=== PATIENT | female | born 1950 ===

== ENCOUNTER 2018-08-07 10:37 | Inpatient (IN) | payer OTHER ==
[2018-08-07 11:44] LABS: BASO % 0.4 % (0.0-2.0); HEMOGLOBIN 12.2 g/dL (11.0-16.0); LYMPH # 0.7 K/uL (1.0-4.3); LYMPH % 10.7 % (20.0-40.0); MEAN CELL VOLUME 85.6 fL (81.0-99.0); MEAN CORPUSCULAR HEMOGLOBIN 28.1 pg (27.0-31.0); MEAN CORPUSCULAR HGB CONC 32.8 g/dL (33.0-37.0); MEAN PLATELET VOLUME 9.5 fL (7.2-11.7); MONO # 0.2 K/uL (0.0-0.8); MONO % 2.3 % (0.0-10.0); NEUT # 5.8 K/uL (1.8-7.0); NEUT % 86.6 % (50.0-75.0); RBC 4.33 Mil/uL (3.80-5.20); RED CELL DISTRIBUTION WIDTH 13.4 % (11.5-14.5); WHITE BLOOD COUNT 6.7 K/uL (4.8-10.8)
--- NOTE | 2018-08-07 12:30 | RAD ---
Date of service: 08/07/2018 PROCEDURE: Radiographs of the chest and abdomen (obstructive series) HISTORY: Abdominal pain COMPARISON: No prior. TECHNIQUE: AP radiograph of the chest, with upright and supine radiographs of the abdomen. FINDINGS: CHEST: Lungs: Clear. Cardiovascular: Normal size heart. No pulmonary vascular congestion. No aortic atherosclerotic calcification present Pleura: No pleural fluid. No pneumothorax. Other findings: None. ABDOMEN AND PELVIS: Bowel: Unremarkable bowel gas pattern. No evidence of mechanical obstruction. Free air: None. Bones: Mild multilevel degenerative spondylosis of the thoracic and lumbar spine. There is also mild levoscoliosis centered at the thoracolumbar junction.. Other findings: None. IMPRESSION: No acute cardiopulmonary disease. The height minor mid back on obscured. No evidence of mechanical bowel obstruction.
[2018-08-07 13:01] LABS: ALB/GLOB RATIO 1.5 (1.0-2.1); ALBUMIN 4.8 g/dL (3.5-5.0); ALT/SGPT 64 U/L (9-52); AST/SGOT 51 U/L (14-36); BLOOD UREA NITROGEN 19 mg/dL (7-17); CALCIUM 9.4 mg/dl (8.6-10.4); GFR NON-AFRICAN AMERICAN 55; LIPASE 25 U/L (23-300)
[2018-08-07 13:11] LABS: B-TYPE NATRIURETIC PEPTIDE 321 pg/mL (0-900)
--- NOTE | 2018-08-07 13:57 | C.PDOC ---
History Of Present Illness 68 year old female who stays with her family presents to the emergency department with complaints of multiple episodes of nausea and vomiting last night without any trigger or abdominal pain. Patient denies chest pain, shortness of breath, diarrhea, fever, and chills. Patient states that she had a similar presentation a few years ago where the symptoms persisted for 4 months with no diagnosis. Time Seen by Provider: 08/07/18 11:15 Chief Complaint (Nursing): GI Problem History Per: Patient History/Exam Limitations: no limitations Onset/Duration Of Symptoms: Days (1) Current Symptoms Are (Timing): Still Present Associated Symptoms: Nausea, Vomiting. denies: Fever, Chills, Diarrhea, Chest Pain, Other (shortness of breath) Past Medical History Reviewed: Historical Data, Nursing Documentation, Vital Signs Vital Signs: Last Vital Signs Temp 97.6 F 08/07/18 10:48 Pulse 62 08/07/18 10:48 Resp 20 08/07/18 10:48 BP 177/76 H 08/07/18 10:48 Pulse Ox 99 08/07/18 10:48 - Medical History PMH: HTN Surgical History: No Surg Hx Family History: States: No Known Family Hx - Social History Hx Alcohol Use: No Hx Substance Use: No - Immunization History Hx Tetanus Toxoid Vaccination: No Hx Influenza Vaccination: No Hx Pneumococcal Vaccination: No Review Of Systems Except As Marked, All Systems Reviewed And Found Negative. Gastrointestinal: Positive for: Nausea, Vomiting Physical Exam - Physical Exam Appears: Non-toxic, No Acute Distress Skin: Normal Color, Warm, Dry Head: Atraumatic, Normacephalic Eye(s): bilateral: Normal Inspection, PERRL, EOMI Oral Mucosa: Moist Neck: Normal, Supple Chest: Symmetrical, No Tenderness Cardiovascular: Rhythm Regular, No Murmur Respiratory: Normal Breath Sounds, No Rales, No Rhonchi, No Wheezing Gastrointestinal/Abdominal: Soft, No Tenderness, No Guarding, No Rebound Neurological/Psych: Oriented x3, Normal Speech, Normal Cognition ED Course And Treatment - Laboratory Results Result Diagrams: 08/07/18 11:35 08/07/18 12:37 Lab Results: Troponin I < 0.0120 ng/mL (0.00-0.120) 08/07/18 12:37 NT-Pro-B Natriuret Pep 321 pg/mL (0-900) 08/07/18 12:37 Total Bilirubin 1.9 mg/dL (0.2-1.3) H 08/07/18 12:37 AST 51 U/L (14-36) H 08/07/18 12:37 ALT 64 U/L (9-52) H 08/07/18 12:37 Alkaline Phosphatase 81 U/L (38-126) 08/07/18 12:37 Total Protein 8.0 g/dL (6.3-8.3) 08/07/18 12:37 Albumin 4.8 g/dL (3.5-5.0) 08/07/18 12:37 Globulin 3.2 gm/dL (2.2-3.9) 08/07/18 12:37 Albumin/Globulin Ratio 1.5 (1.0-2.1) 08/07/18 12:37 Lipase 25 U/L (23-300) 08/07/18 12:37 O2 Sat by Pulse Oximetry: 99 (RA) Pulse Ox Interpretation: Normal - Other Rad XR Obstructive Series X-Ray: Viewed By Me, Read By Radiologist Interpretation: IMPRESSION: No acute cardiopulmonary disease. The height minor mid back on obscured. No evidence of mechanical bowel obstruction. Medical Decision Making Medical Decision Making: Plan: EKG Chemistry CBC XR Obstructive Series KCl Pepcid 20mg IVP Zofran 4mg IVP Urinalysis Upon reviewing labs, patient's potassium level is low. Case discussed with hospitalist, who wants to admit the patient to telemetry for hypokalemia and vomiting. Disposition Discussed With Dr.: Nicholas Kirkland Doctor Will See Patient In The: Hospital Counseled Patient/Family Regarding: Studies Performed, Diagnosis - Disposition Disposition: HOSPITALIZED Disposition Time: 13:56 Condition: FAIR - Clinical Impression Clinical Impression: Hypokalemia, Vomiting - Scribe Statement The provider has reviewed the documentation as recorded by the Scribe (Emir Noriegaq vi) Provider Attestation: All medical record entries made by the Scribe were at my direction and personally dictated by me. I have reviewed the chart and agree that the record accurately reflects my personal performance of the history, physical exam, medical decision making, and the department course for this patient. I have also personally directed, reviewed, and agree with the discharge instructions and disposition.
[2018-08-07] MEDS ORDERED: Potassium Chl 40 mEq in D5-1/2 1,000 ML IV SCH (14:00)
--- NOTE | 2018-08-07 14:41 | CP.PCM.HP ---
<Dariana Geiger - Last Filed: 08/07/18 15:17> History of Present Illness - History of Present Illness History of Present Illness: Dariana Geiger PGY1 H&P for Dr. Kirkland Pt is a 68yo F with PMH HTN who presents to ED with nausea and vomiting for 2 days. She reports worsening of the nausea and vomiting last night, when she began vomiting multiple times throughout the night. She describes the vomit as initially white, then green last night. She says she continued to vomit in the ED, but felt better after receiving zofran. She tried eating sea salt at home with no relief. She reports prior history of this in 2016 that lasted 4 months, claiming it was more severe at that time. Pt received EGD at that time which was normal. Pt denies abdominal pain, diarrhea, sick contacts, recent travel, or any outside food. She was able to eat lunch yesterday but has not eaten since. Pt reports last BM was yesterday, which was formed but she had to strain. She denies blood in vomit or stool. Pt denies dizziness, chest pain, shortness of breath, dizziness, dysuria, numbness or tingling. SxH: R shoulder arthroscopy 2013, BTL 1981 SocH: denies tobacco, etoh, or recreational drug use FamH: mom- DM Allergies: NKDA Meds: lisinopril 40mg PO daily, Toprol XL 25mg PO daily, HCTZ 25mg PO daily PMD: Kleyn Present on Admission - Present on Admission Any Indicators Present on Admission: No Review of Systems - Review of Systems Review of Systems: as per HPI Past Patient History - Past Social History Smoking Status: Never Smoked - CARDIAC Hx Hypertension: Yes - GASTROINTESTINAL Hx Ulcer: Yes - PSYCHIATRIC Hx Substance Use: No - SURGICAL HISTORY Hx Orthopedic Surgery: Yes (Right shoulder) Hx Tubal Ligation: Yes - ANESTHESIA Hx Anesthesia: Yes Hx Anesthesia Reactions: No Meds Allergies/Adverse Reactions: Allergies Allergy/AdvReac Type Severity Reaction Status Date / Time No Known Allergies Allergy Verified 08/07/18 10:53 Physical Exam - Constitutional Appears: Well, No Acute Distress - Head Exam Head Exam: ATRAUMATIC, NORMOCEPHALIC - Eye Exam Eye Exam: EOMI, Normal appearance, PERRL Pupil Exam: NORMAL ACCOMODATION - ENT Exam ENT Exam: Mucous Membranes Moist - Neck Exam Neck exam: Positive for: Normal Inspection - Respiratory Exam Respiratory Exam: Clear to Auscultation Bilateral, NORMAL BREATHING PATTERN. absent: Rhonchi, Wheezes - Cardiovascular Exam Cardiovascular Exam: Bradycardia, +S1, +S2. absent: Gallop, Rubs, Systolic Murmur - GI/Abdominal Exam GI & Abdominal Exam: Hypoactive Bowel Sounds, Soft. absent: Distended, Firm, Tenderness - Extremities Exam Extremities exam: Positive for: normal inspection. Negative for: pedal edema, tenderness - Neurological Exam Neurological exam: Alert, CN II-XII Intact, Oriented x3 - Psychiatric Exam Psychiatric exam: Normal Affect, Normal Mood - Skin Skin Exam: Dry Results - Vital Signs Recent Vital Signs: Last Vital Signs Temp 97.6 F 08/07/18 10:48 Pulse 59 L 08/07/18 14:26 Resp 16 08/07/18 14:26 BP 179/84 H 08/07/18 14:26 Pulse Ox 99 08/07/18 14:35 - Labs Result Diagrams: 08/07/18 11:35 08/07/18 12:37 Labs: Laboratory Results - last 24 hr 08/07/18 08/07/18 11:35 12:37 WBC 6.7 RBC 4.33 Hgb 12.2 Hct 37.1 MCV 85.6 MCH 28.1 MCHC 32.8 L RDW 13.4 Plt Count 241 MPV 9.5 Neut % (Auto) 86.6 H Lymph % (Auto) 10.7 L Dickens % (Auto) 2.3 Eos % (Auto) 0.0 Baso % (Auto) 0.4 Neut # (Auto) 5.8 Lymph # (Auto) 0.7 L Dickens # (Auto) 0.2 Eos # (Auto) 0.0 Baso # (Auto) 0.0 Sodium 139 Potassium 2.8 L Chloride 96 L Carbon Dioxide 31 H Anion Gap 15 BUN 19 H Creatinine 1.0 Est GFR ( Amer) > 60 Est GFR (Non-Af Amer) 55 Random Glucose 162 H Calcium 9.4 Magnesium 1.7 Total Bilirubin 1.9 H AST 51 H ALT 64 H Alkaline Phosphatase 81 Troponin I < 0.0120 NT-Pro-B Natriuret Pep 321 Total Protein 8.0 Albumin 4.8 Globulin 3.2 Albumin/Globulin Ratio 1.5 Lipase 25 Assessment & Plan - Assessment and Plan (Free Text) Assessment: 68yo F with PMH HTN who presents to ED with nausea and vomiting for 2 days, admitted for hypokalemia. Plan: Hypokalemia - likely secondary to vomiting - K+ 2.8 - Mg 1.7 - EKG: sinus patrick with LVH - given KCl 40meq IV in ED - KCL 40meq in 1/2NS @125cc/hr - f/u BMP - replete Mg if needed Vomiting - reports improvement with zofran - Xray abdomen/pelvis: no obstruction - f/u CT abd/pel PO contrast - f/u serum influenza - Zofran 4mg IV q6h PRN - Reglan 10mg IV q12h PRN - 1/2 NS@125cc/hr - CLD - advance diet as tolerated H/o HTN - EKG: sinus patrick with LVH - hold home meds at this time - vasotec 1.25mg IV daily PPX GI: not indicated at this time DVT: SCDs, lovenox 40 CLD Pt seen and case reviewed with Dr. Kirkland <Nicholas Kirkland - Last Filed: 08/07/18 17:03> Results - Vital Signs Recent Vital Signs: Last Vital Signs Temp 97.6 F 08/07/18 10:48 Pulse 60 08/07/18 16:03 Resp 17 08/07/18 16:03 BP 171/56 H 08/07/18 16:03 Pulse Ox 98 08/07/18 16:03 - Labs Result Diagrams: 08/07/18 11:35 08/07/18 12:37 Labs: Laboratory Results - last 24 hr 08/07/18 08/07/18 11:35 12:37 WBC 6.7 RBC 4.33 Hgb 12.2 Hct 37.1 MCV 85.6 MCH 28.1 MCHC 32.8 L RDW 13.4 Plt Count 241 MPV 9.5 Neut % (Auto) 86.6 H Lymph % (Auto) 10.7 L Dickens % (Auto) 2.3 Eos % (Auto) 0.0 Baso % (Auto) 0.4 Neut # (Auto) 5.8 Lymph # (Auto) 0.7 L Dickens # (Auto) 0.2 Eos # (Auto) 0.0 Baso # (Auto) 0.0 Sodium 139 Potassium 2.8 L Chloride 96 L Carbon Dioxide 31 H Anion Gap 15 BUN 19 H Creatinine 1.0 Est GFR ( Amer) > 60 Est GFR (Non-Af Amer) 55 Random Glucose 162 H Calcium 9.4 Magnesium 1.7 Total Bilirubin 1.9 H AST 51 H ALT 64 H Alkaline Phosphatase 81 Troponin I < 0.0120 NT-Pro-B Natriuret Pep 321 Total Protein 8.0 Albumin 4.8 Globulin 3.2 Albumin/Globulin Ratio 1.5 Lipase 25 Attending/Attestation - Attestation I have personally seen and examined this patient.: Yes I have fully participated in the care of the patient.: Yes I have reviewed all pertinent clinical information: Yes Notes (Text): 08/07/18 16:57 Medical attending: Patient was seen and examined by me. Agree with the above note by the resident The patient was not in any acute distress when we came and saw her. She reported no abdominal pain on exam, however has had ongoing nausea and vomiting that is only relieved with the administration of Zofran. review of her labwork shows there is a low K of 2.8. Will give IVF 1/2 NSS with KCL in it for hydration Also the obstruction series was negative, will try to see if she can tolerate a CT of the abdomen and pelivis with PO contrast. The patient explains that there was similar occurence sometime ago and she was in the hospital for some time however nothing was found despite undergoing numerous studies Nicholas Kirkland
[2018-08-07] MEDS ORDERED: Iohexol 240 (50 ml) PO ONE (15:16)
[2018-08-07] MEDS ORDERED: Iohexol 240 (50 ml) ONE (16:01)
[2018-08-07] MEDS ORDERED: Enalaprilat 2.5 MG/2 ML ONE (16:01)
[2018-08-07] MEDS: Enalaprilat 2.5 MG/2 ML IV SCH (16:03)
--- NOTE | 2018-08-07 18:10 | CT ---
Date of service: 08/07/2018 PROCEDURE: CT Abdomen and Pelvis with contrast HISTORY: Nausea, vomiting and hypokalemia. COMPARISON: None. TECHNIQUE: Oral contrast only. Radiation dose: Total exam DLP = 1063.52 mGy-cm. This CT exam was performed using one or more of the following dose reduction techniques: Automated exposure control, adjustment of the mA and/or kV according to patient size, and/or use of iterative reconstruction technique. FINDINGS: LOWER THORAX: Unremarkable. LIVER: Unremarkable. No gross lesion or ductal dilatation. GALLBLADDER AND BILE DUCTS: Cholelithiasis without CT evidence of acute cholecystitis. PANCREAS: Unremarkable. No gross lesion or ductal dilatation. SPLEEN: Unremarkable. ADRENALS: Unremarkable. No mass. KIDNEYS AND URETERS: Unremarkable. No hydronephrosis. No solid mass. VASCULATURE: Atherosclerotic calcification and mural plaque present. Findings are seen throughout the aorta No aortic aneurysm. BOWEL: Unremarkable. No obstruction. No gross mural thickening. APPENDIX: Normal appendix. PERITONEUM: Unremarkable. No free fluid. No free air. LYMPH NODES: Unremarkable. No enlarged lymph nodes. BLADDER: Unremarkable. REPRODUCTIVE: Unremarkable. BONES: No acute fracture. OTHER FINDINGS: None. IMPRESSION: Cholelithiasis without CT evidence of acute cholecystitis. No evidence of mechanical bowel obstruction, mass or intraperitoneal free air. Additional benign and/or incidental findings described above.
[2018-08-07] MEDS: Potassium Chloride 40 MEQ in Sodium Chloride 0.45% 1,000 ML IV SCH (19:00)
[2018-08-08] MEDS: Potassium Chloride 40 MEQ in Sodium Chloride 0.45% 1,000 ML IV SCH ×2 (02:31→02:43)
[2018-08-08] MEDS: MAGNESIUM SULFATE IV SCH ×3 (05:38→22:40)
[2018-08-08] MEDS: SODIUM CHLORIDE 0.45% IV SCH ×3 (05:38→22:40)
[2018-08-08] MEDS: POTASSIUM CHLORIDE IV SCH ×3 (05:38→22:40)
[2018-08-08 06:51] LABS: BASO % 0.4 % (0.0-2.0); EOS % 0.1 % (0.0-4.0); HEMOGLOBIN 11.2 g/dL (11.0-16.0); LYMPH # 1.6 K/uL (1.0-4.3); LYMPH % 19.5 % (20.0-40.0); MEAN CELL VOLUME 84.8 fL (81.0-99.0); MEAN CORPUSCULAR HEMOGLOBIN 28.4 pg (27.0-31.0); MEAN CORPUSCULAR HGB CONC 33.5 g/dL (33.0-37.0); MEAN PLATELET VOLUME 9.7 fL (7.2-11.7); MONO # 0.6 K/uL (0.0-0.8); MONO % 7.8 % (0.0-10.0); NEUT # 5.7 K/uL (1.8-7.0); NEUT % 72.2 % (50.0-75.0); RBC 3.96 Mil/uL (3.80-5.20); RED CELL DISTRIBUTION WIDTH 13.5 % (11.5-14.5); WHITE BLOOD COUNT 7.9 K/uL (4.8-10.8)
[2018-08-08 07:30] LABS: ALB/GLOB RATIO 1.4 (1.0-2.1); ALBUMIN 4.1 g/dL (3.5-5.0); ALT/SGPT 56 U/L (9-52); AST/SGOT 48 U/L (14-36); BLOOD UREA NITROGEN 16 mg/dL (7-17); CALCIUM 8.7 mg/dl (8.6-10.4); GFR NON-AFRICAN AMERICAN 55
--- NOTE | 2018-08-08 09:11 | CP.PCM.PN ---
Subjective - Date & Time of Evaluation Date of Evaluation: 08/08/18 Time of Evaluation: 09:00 - Subjective Subjective: Patient reported she did feel better. There was less nausea and vomiting today. She has been on the Zofran and Reglan and IVF She has been able to hold down a clear liquid diet. She continues to deny having abdominal pain. She has not had a BM. Urination is ok she says Continues to deny fevers, denies chills, denies chest pain, denies shortness of breath CT scan with PO contrast did not show any acute findings She is on IVF with KCL, today the K is better. I explained to her that maybe she will be DC tommorow depending on K level Objective - Vital Signs/Intake and Output Vital Signs (last 24 hours): Temp Pulse Resp BP Pulse Ox 99.1 F 54 L 20 171/74 H 96 08/08/18 08:24 08/08/18 08:24 08/08/18 08:24 08/08/18 08:24 08/08/18 08:24 Intake and Output: 08/08/18 08/08/18 06:59 18:59 Intake Total 550 Balance 550 - Medications Medications: Current Medications Acetaminophen (Tylenol 325mg Tab) 650 mg PO Q6 PRN PRN Reason: Pain, moderate (4-7) Enalaprilat (Vasotec) 1.25 mg IV DAILY [facility] Last Admin: 08/07/18 16:03 Dose: 1.25 mg Enoxaparin Sodium (Lovenox) 40 mg SC DAILY [facility] Potassium Chloride 40 meq/Magnesium Sulfate 1 gm/ Sodium Chloride 1,022 mls @ 125 mls/hr IV .Q8H11M [facility] Last Admin: 08/08/18 05:38 Dose: 125 mls/hr Metoclopramide HCl (Reglan) 10 mg IVP Q12H PRN PRN Reason: Nausea/Vomiting Ondansetron HCl (Zofran Inj) 4 mg IVP Q6 PRN PRN Reason: Nausea/Vomiting Last Admin: 08/08/18 08:00 Dose: 4 mg - Labs Labs: 08/08/18 06:44 08/08/18 06:44 - Constitutional Appears: Well, No Acute Distress - Head Exam Head Exam: NORMAL INSPECTION, NORMOCEPHALIC - Eye Exam Eye Exam: EOMI, Normal appearance - ENT Exam ENT Exam: Mucous Membranes Moist - Respiratory Exam Respiratory Exam: Clear to Ausculation Bilateral, NORMAL BREATHING PATTERN - GI/Abdominal Exam GI & Abdominal Exam: Soft, Normal Bowel Sounds. absent: Distended, Guarding, Rigid, Tenderness Additional comments: No pain, even with deep palpation - Neurological Exam Neurological Exam: Alert, Awake, Oriented x3 Neuro motor strength exam: Left Upper Extremity: 5, Right Upper Extremity: 5, Left Lower Extremity: 5, Right Lower Extremity: 5 - Psychiatric Exam Psychiatric exam: Normal Affect, Normal Mood - Skin Skin Exam: Normal Color, Warm Assessment and Plan - Assessment and Plan (Free Text) Assessment: 68yo F with PMH HTN who presents to ED with nausea and vomiting for 2 days, admitted for hypokalemia. Plan: Hypokalemia 08/08: K is better. On IVF with KCL will continue this. KCL 40meq in 1/2NS @125cc/hr Vomiting 08/08: Tolerating a clear liquid diet Continue with the IVF Also Zofran and Reglan H/o HTN 08/08: Today less nausea and vommitting Resume BB PPX GI: not indicated at this time DVT: SCDs, lovenox 40 CLD
[2018-08-08] MEDS: Enalaprilat 2.5 MG/2 ML IV SCH (09:43)
[2018-08-08] MEDS: Enoxaparin 40 mg Syringe SC SCH (09:43)
[2018-08-08] MEDS ORDERED: Metoprolol Succinate 25 mg XL Tab PO SCH (10:00)
[2018-08-08 15:15] LABS: SQUAMOUS EPITHIAL 1 /hpf (0-5); URINE BACTERIA OCC (<OCC); URINE BILIRUBIN NEGATIVE (NEGATIVE); URINE BLOOD NEGATIVE (NEGATIVE); URINE CLARITY Clear (Clear); URINE COLOR Yellow (YELLOW); URINE GLUCOSE (UA) NORMAL (Normal); URINE LEUKOCYTE ESTERASE 3+ Leu/uL (Negative); URINE PROTEIN NEGATIVE (NEGATIVE)
[2018-08-09] MEDS: MAGNESIUM SULFATE IV SCH ×5 (00:57→22:52)
[2018-08-09] MEDS: POTASSIUM CHLORIDE IV SCH ×5 (00:57→22:52)
[2018-08-09] MEDS: SODIUM CHLORIDE 0.45% IV SCH ×5 (00:57→22:52)
[2018-08-09] MEDS ORDERED: Bisacodyl 5mg EC Tab PO ONE (01:14)
[2018-08-09 07:13] LABS: BASO # 0.1 K/uL (0.0-0.2); BASO % 0.8 % (0.0-2.0); EOS % 0.2 % (0.0-4.0); HEMOGLOBIN 11.4 g/dL (11.0-16.0); LYMPH # 1.6 K/uL (1.0-4.3); LYMPH % 22.3 % (20.0-40.0); MEAN CELL VOLUME 85.2 fL (81.0-99.0); MEAN CORPUSCULAR HEMOGLOBIN 28.5 pg (27.0-31.0); MEAN CORPUSCULAR HGB CONC 33.4 g/dL (33.0-37.0); MONO # 0.6 K/uL (0.0-0.8); MONO % 7.9 % (0.0-10.0); NEUT # 4.9 K/uL (1.8-7.0); NEUT % 68.8 % (50.0-75.0); NRBC % 0.1 % (0.0-2.0); RED CELL DISTRIBUTION WIDTH 13.3 % (11.5-14.5); WHITE BLOOD COUNT 7.1 K/uL (4.8-10.8)
[2018-08-09 07:44] LABS: ALB/GLOB RATIO 1.5 (1.0-2.1); ALT/SGPT 76 U/L (9-52); AST/SGOT 73 U/L (14-36); BLOOD UREA NITROGEN 12 mg/dL (7-17); CALCIUM 8.4 mg/dl (8.6-10.4); GFR NON-AFRICAN AMERICAN > 60
[2018-08-09] MEDS: Enalaprilat 2.5 MG/2 ML IV SCH (09:12)
[2018-08-09] MEDS: Enoxaparin 40 mg Syringe SC SCH (09:13)
--- NOTE | 2018-08-09 09:21 | CP.PCM.PN ---
Subjective - Date & Time of Evaluation Date of Evaluation: 08/09/18 Time of Evaluation: 09:00 - Subjective Subjective: Patient reported feeling very anxious and stressed out last night. She still has the nausea and vomiting. She says the Zofran and Reglan do help - but when they wear off the nausea and vomiting return. Today the K is better 3.4 now with the IVF with KCL. Will check a urine culture as well She continues to deny abdominal pain and denies chest pain, denies headache, denies fever BP was somewhat elevated - in the 160s and 170s systolic. Will add on norvasc, continue enalapril. Objective - Vital Signs/Intake and Output Vital Signs (last 24 hours): Temp Pulse Resp BP Pulse Ox 98.6 F 75 20 189/80 H 99 08/09/18 07:00 08/09/18 08:00 08/09/18 07:00 08/09/18 09:12 08/09/18 07:00 Intake and Output: 08/09/18 08/09/18 06:59 18:59 Intake Total 900 Output Total 100 Balance 800 - Medications Medications: Current Medications Acetaminophen (Tylenol 325mg Tab) 650 mg PO Q6 PRN PRN Reason: Pain, moderate (4-7) Amlodipine Besylate (Norvasc) 10 mg PO DAILY [facility] Last Admin: 08/09/18 09:12 Dose: 10 mg Enalaprilat (Vasotec) 1.25 mg IV DAILY [facility] Last Admin: 08/09/18 09:12 Dose: 1.25 mg Enoxaparin Sodium (Lovenox) 40 mg SC DAILY [facility] Last Admin: 08/09/18 09:13 Dose: 40 mg Potassium Chloride 40 meq/Magnesium Sulfate 1 gm/ Sodium Chloride 1,022 mls @ 125 mls/hr IV .Q8H11M [facility] Last Admin: 08/09/18 09:12 Dose: 125 mls/hr Metoclopramide HCl (Reglan) 10 mg IVP Q12H PRN PRN Reason: Nausea/Vomiting Last Admin: 08/08/18 09:42 Dose: 10 mg Metoprolol Tartrate (Lopressor) 25 mg PO BID [facility] Last Admin: 08/08/18 18:16 Dose: Not Given Ondansetron HCl (Zofran Inj) 4 mg IVP Q6 PRN PRN Reason: Nausea/Vomiting Last Admin: 08/09/18 04:31 Dose: 4 mg - Labs Labs: 08/09/18 07:02 08/09/18 07:02 - Constitutional Appears: Unkempt - Head Exam Head Exam: NORMAL INSPECTION, NORMOCEPHALIC - Eye Exam Eye Exam: EOMI, Normal appearance - ENT Exam ENT Exam: Mucous Membranes Moist - Respiratory Exam Respiratory Exam: Clear to Ausculation Bilateral, NORMAL BREATHING PATTERN - Cardiovascular Exam Cardiovascular Exam: REGULAR RHYTHM - GI/Abdominal Exam GI & Abdominal Exam: Soft, Normal Bowel Sounds. absent: Bruit, Distended, Firm, Guarding, Rigid, Tenderness Additional comments: No pain even with deep palpation - Neurological Exam Neurological Exam: Alert, Awake, Oriented x3 Neuro motor strength exam: Left Upper Extremity: 5, Right Upper Extremity: 5, Left Lower Extremity: 5, Right Lower Extremity: 5 - Psychiatric Exam Psychiatric exam: Depressed, Flat Affect - Skin Skin Exam: Normal Color, Warm Assessment and Plan - Assessment and Plan (Free Text) Assessment: 68yo F with PMH HTN who presents to ED with nausea and vomiting for 2 days, admitted for hypokalemia, stress, anxiety Plan: Hypokalemia 08/09: Again improved. Because of the ongoing nausea and vommitting will continue with the IVF as she has poor PO tolerance. The CT scan of the abdomen and pelvis with PO contrast was negative for acute dings. 08/08: K is better. On IVF with KCL will continue this. KCL 40meq in 1/2NS @125cc/hr Vomiting and Nausea 08/09: Continue with the Reglan and Zofran IV. Today try Thorazine 25 IM x 1 and see if this helps any. Should she continue to have this nausea and vommitting consider GI consult to see if she may need an EGD As mentioned previously the CT with PO contrast was negative for acute findings 08/08: Tolerating a clear liquid diet Continue with the IVF Also Zofran and Reglan H/O HTN 08/09: 08/08: Today less nausea and vommitting PPX GI: not indicated at this time DVT: SCDs, lovenox 40 CLD
[2018-08-10 01:23] VITALS: RESP 20
[2018-08-10] MEDS: POTASSIUM CHLORIDE IV SCH (03:42)
[2018-08-10] MEDS: MAGNESIUM SULFATE IV SCH (03:42)
[2018-08-10] MEDS: SODIUM CHLORIDE 0.45% IV SCH (03:42)
[2018-08-10 07:05] LABS: ALB/GLOB RATIO 1.4 (1.0-2.1); ALBUMIN 3.9 g/dL (3.5-5.0); ALT/SGPT 86 U/L (9-52); AST/SGOT 61 U/L (14-36); BLOOD UREA NITROGEN 8 mg/dL (7-17); CALCIUM 8.3 mg/dl (8.6-10.4); GFR NON-AFRICAN AMERICAN > 60
[2018-08-10 07:08] LABS: BASO % 0.5 % (0.0-2.0); EOS % 0.5 % (0.0-4.0); HEMOGLOBIN 11.6 g/dL (11.0-16.0); LYMPH # 1.3 K/uL (1.0-4.3); LYMPH % 17.8 % (20.0-40.0); MEAN CELL VOLUME 84.7 fL (81.0-99.0); MEAN CORPUSCULAR HEMOGLOBIN 28.5 pg (27.0-31.0); MEAN CORPUSCULAR HGB CONC 33.6 g/dL (33.0-37.0); MEAN PLATELET VOLUME 9.8 fL (7.2-11.7); MONO # 0.5 K/uL (0.0-0.8); MONO % 6.6 % (0.0-10.0); NEUT # 5.6 K/uL (1.8-7.0); NEUT % 74.6 % (50.0-75.0); RBC 4.07 Mil/uL (3.80-5.20); RED CELL DISTRIBUTION WIDTH 13.4 % (11.5-14.5); WHITE BLOOD COUNT 7.5 K/uL (4.8-10.8)
--- NOTE | 2018-08-10 07:38 | CP.PCM.PN ---
Subjective - Date & Time of Evaluation Date of Evaluation: 08/10/18 Time of Evaluation: 07:37 - Subjective Subjective: PGY-1 Louann Cheung D.O. Medicine progress note for Dr. Kwok's service: Patient was seen and examined this morning. She states that she is feeling much better. She continues to have a "burning" sensation in her chest/throat. She has some post-tussive vomiting yesterday, but she reports that it was a low volume of emesis. She is tolerating clear liquids. She states she eats regular food at home but is not comfortable advancing her diet that quickly. She is agreeable to trying full liquids. She is sleeping well. Denies abdominal pain. She had a BM yesterday. She says she is urinating frequently due to her IVF. Objective - Vital Signs/Intake and Output Vital Signs (last 24 hours): Temp Pulse Resp BP Pulse Ox 99.0 F 86 20 160/89 H 96 08/10/18 07:00 08/10/18 07:00 08/10/18 07:00 08/10/18 07:00 08/10/18 07:00 Intake and Output: 08/10/18 08/10/18 06:59 18:59 Intake Total 1999 Balance 1999 - Medications Medications: Current Medications Acetaminophen (Tylenol 325mg Tab) 650 mg PO Q6 PRN PRN Reason: Pain, moderate (4-7) Amlodipine Besylate (Norvasc) 10 mg PO DAILY [facility] Last Admin: 08/09/18 09:12 Dose: 10 mg Enalaprilat (Vasotec) 1.25 mg IV DAILY [facility] Last Admin: 08/09/18 09:12 Dose: 1.25 mg Enoxaparin Sodium (Lovenox) 40 mg SC DAILY [facility] Last Admin: 08/09/18 09:13 Dose: 40 mg Potassium Chloride 40 meq/Magnesium Sulfate 1 gm/ Sodium Chloride 1,022 mls @ 125 mls/hr IV .Q8H11M [facility] Last Admin: 08/10/18 03:42 Dose: 125 mls/hr Metoclopramide HCl (Reglan) 10 mg IVP Q12H PRN PRN Reason: Nausea/Vomiting Last Admin: 08/10/18 00:57 Dose: 10 mg Metoprolol Tartrate (Lopressor) 25 mg PO BID [facility] Last Admin: 08/08/18 18:16 Dose: Not Given Ondansetron HCl (Zofran Inj) 4 mg IVP Q6 PRN PRN Reason: Nausea/Vomiting Last Admin: 08/09/18 04:31 Dose: 4 mg - Labs Labs: 08/10/18 06:43 08/10/18 06:43 - Constitutional Appears: Non-toxic, No Acute Distress - Head Exam Head Exam: ATRAUMATIC, NORMAL INSPECTION - Eye Exam Eye Exam: EOMI, Normal appearance - ENT Exam ENT Exam: Mucous Membranes Moist - Neck Exam Neck Exam: Normal Inspection - Respiratory Exam Respiratory Exam: Clear to Ausculation Bilateral, NORMAL BREATHING PATTERN. absent: Accessory Muscle Use, Respiratory Distress - Cardiovascular Exam Cardiovascular Exam: REGULAR RHYTHM, +S1, +S2 - GI/Abdominal Exam GI & Abdominal Exam: Soft. absent: Distended, Tenderness, Rebound - Extremities Exam Extremities Exam: Normal Inspection - Neurological Exam Neurological Exam: Alert, Awake, CN II-XII Intact, Oriented x3 - Psychiatric Exam Psychiatric exam: Normal Affect, Normal Mood - Skin Skin Exam: Dry, Normal Color, Warm Assessment and Plan - Assessment and Plan (Free Text) Assessment: Patient is a 68 yo female with a history of HTN who presented with nausea and vomiting. GI work-up has been negative thus far. Patient's family believes this may be psych-related as the patient has had previous hospitalizations for the same symptoms without an organic etiology found. Patient reports anxiety. Lexapro started for depression and anxiety. Nausea and vomiting have improved and patient is tolerating PO diet. GNR in urine Cx; patient asymptomatic. Plan: Nausea and vomiting, improved - Patient reports previous work-up, including EGD, without significant results - Afebrile, no leukocytosis - Rapid flu negative - AXR: no obstruction - CT A/P: Cholelithiasis without CT evidence of acute cholecystitis. No evidence of mechanical bowel obstruction, mass or intraperitoneal free air. - Replete electrolytes PRN- hypokalemia resolved - Reglan 10 mg IV Q12H PRN - Zofran 4 mg IV Q6H PRN - Discontinue IVF- patient tolerating PO diet, ADAT - Consider GI consult if worsens Gastroesophageal reflux disease - Elevate head of bed - Avoid lying down after eating - Protonix 40 mg PO daily for at least 4 weeks, then consider EGD as outpatient if no improvement Transaminitis, mild, stable - Hepatitis panel pending - Trend LFTs Asymptomatic bacteriuria - UA: LE 3+, nitrate neg, WBC 70, tex occ - UCx: GNR - Follow-up final Cx and sensitivities - Cipro 500 mg PO Q12H- started 08/10 Hypertension - Vitals Q6H - Norvasc 10 mg PO daily - Enalapril 2.5 mg PO daily - Metoprolol 50 mg PO daily Ppx: VTE: SCDs, LVX 40 units SC daily GI: PTX 40 mg PO daily Code status: full code Case was discussed with attending, Dr. Kwok.
[2018-08-10] MEDS ORDERED: Vitamins A & D Oint UD Foilpak TOP PRN (08:22)
[2018-08-10] MEDS: Enalaprilat 2.5 MG/2 ML IV SCH (09:54)
[2018-08-10] MEDS: Enoxaparin 40 mg Syringe SC SCH (09:56)
--- NOTE | 2018-08-10 12:06 | PCM.PSYCH ---
Initial Psychiatric Evaluation - Initial Psychiatric Evaluation Type of Admission: Voluntary Legal Status: Capacity Chief Complaint (in patient's own words): "Anxious" History of Present Illness and Precipitating Events: Reason for consult: Anxiety 68 yo single female, lives with two roommates in an apt in [place]. Pt has 6 older children, none of which reside with her. 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 She states her financial stressors, and keeping those issues from her children, have been contributing to her feelings of worry and anxiety. She has been throwing up very likely due to too much stress and unable to cope with it. She admits that she was raised to be independent but now she feels like a failure at times. Denies depression, SI, HI, aisha or psychosis. Pt reports high self esteem, sleeping well, and enjoying her daily activities. She denies any SI, HI, hx of panic attacks or any previous psych admissions.She denies any alcohol or illicit drug use. She states she finds help in mosque and prayer. PMHx: HTN PSHx: denies Past Psychiatric Hx: denies Current Medications: Active Medications Generic Name Dose Route Start Last Admin Trade Name Freq PRN Reason Stop Dose Admin Acetaminophen 650 mg 08/07/18 14:50 Tylenol 325mg Tab PO Q6 PRN Pain, moderate (4-7) Amlodipine Besylate 10 mg 08/09/18 10:00 08/10/18 09:54 Norvasc PO 10 mg DAILY [facility] Administration Enalaprilat 1.25 mg 08/07/18 15:15 08/10/18 09:54 Vasotec IV 1.25 mg DAILY [facility] Administration Enoxaparin Sodium 40 mg 08/08/18 10:00 08/10/18 09:56 Lovenox SC 40 mg DAILY [facility] Administration Metoclopramide HCl 10 mg 08/07/18 15:10 08/10/18 00:57 Reglan IVP 10 mg Q12H PRN Administration Nausea/Vomiting Metoprolol Succinate 50 mg 08/10/18 11:30 Toprol Xl PO DAILY [facility] Ondansetron HCl 4 mg 08/07/18 14:50 08/09/18 04:31 Zofran Inj IVP 4 mg Q6 PRN Administration Nausea/Vomiting Pantoprazole Sodium 40 mg 08/10/18 11:30 Protonix Ec Tab PO DAILY [facility] Vitamin A 1 ea 08/10/18 08:22 08/10/18 09:54 Vitamin A & D Oint Ud Foilpak TOP 1 ea Q8 PRN Administration Dry skin Past Psychiatric History - Past Psychiatric History Previous Treatment History: None Pertinent Medical Hx (Current Medical&Sleep Prob, Allergies): Allergies Allergy/AdvReac Type Severity Reaction Status Date / Time No Known Allergies Allergy Verified 08/07/18 10:53 Lisinopril [Zestril] 40 mg PO DAILY 08/07/18 Metoprolol Succinate XL [Toprol XL] 25 mg PO DAILY 08/07/18 hydroCHLOROthiazide [Hydrodiuril] 25 mg PO DAILY 08/07/18 Review of Systems - Psychiatric Psychiatric: Abnormal Sleep Pattern, Anxiety, Difficulty Concentrating. absent: Change in Appetite, Depression, Hallucinations, Homicidal Ideation, Irritability, Panic Attacks, Paranoia, Suicidal Ideation Mental Status Examination - Personal Presentation Personal Presentation: Looks stated age - Affect Affect: Broad - Motor Activity Motor Activity: Calm - Reliability in Providing Information Reliability in Providing Information: Good - Speech Speech: Organized - Mood Mood: Anxious - Formal Thought Process Formal Thought Process: No Impairment - Cognitive Functions Orientation: Person, Place, Situation, Time Sensorium: Alert Attention/Concentration: Attentive Estimate of Intelligence: Average Judgement: Intact, as evidence by: Insight regarding need for hospitalization Memory: Recent intact, as evidence by: Ability to recall events of the day, Remote intact, as evidenced by: Abilit to recall sig. life events - Risk Risk: Diminished functioning - Strength & Assets Inventory Strength & Assets Inventory: Family support, Cooperative - Limitations Limitations: Other DSM 5 DX - DSM 5 DSM 5 Diagnosis: Generalized Anxiety Disorder r/o Adjustment d/o - Recommended/Plan of Treatment Treatment Recommendations and Plan of Treatment: Start on Lexapro 5 mg/d Provide prescription to continue medication after discharge. All the risks and benefits of medications are discussed and the patient understood and agreed. After care and follow up discussed with the pt. She will go to [facility] for therapy and meds 33 min
[2018-08-10] MEDS: Pantoprazole 40 mg EC Tab PO SCH (12:45)
[2018-08-10] MEDS: Metoprolol Succinate 50 mg XL Tab PO SCH (12:45)
[2018-08-10 21:21] LABS: HEPATITIS B SURFACE AG Negative (NEGATIVE)
[2018-08-10 21:26] LABS: HEPATITIS A IGM NEGATIVE (NEGATIVE)
[2018-08-10 21:38] LABS: HEPATITIS C ANTIBODY NEGATIVE (NEGATIVE)
[2018-08-10 22:13] LABS: HEPATITIS B CORE AB NEGATIVE (NEGATIVE)
[2018-08-11 06:44] LABS: BASO % 0.7 % (0.0-2.0); EOS # 0.1 K/uL (0.0-0.7); HEMOGLOBIN 11.6 g/dL (11.0-16.0); LYMPH # 1.8 K/uL (1.0-4.3); LYMPH % 27.6 % (20.0-40.0); MEAN CELL VOLUME 85.4 fL (81.0-99.0); MEAN CORPUSCULAR HGB CONC 32.8 g/dL (33.0-37.0); MEAN PLATELET VOLUME 9.6 fL (7.2-11.7); MONO # 0.5 K/uL (0.0-0.8); MONO % 8.2 % (0.0-10.0); NEUT # 4.2 K/uL (1.8-7.0); NEUT % 62.5 % (50.0-75.0); NRBC % 0.1 % (0.0-2.0); RBC 4.13 Mil/uL (3.80-5.20); RED CELL DISTRIBUTION WIDTH 13.7 % (11.5-14.5); WHITE BLOOD COUNT 6.7 K/uL (4.8-10.8)
[2018-08-11 07:01] LABS: ALB/GLOB RATIO 1.5 (1.0-2.1); ALBUMIN 3.8 g/dL (3.5-5.0); ALT/SGPT 74 U/L (9-52); AST/SGOT 49 U/L (14-36); BLOOD UREA NITROGEN 10 mg/dL (7-17); CALCIUM 8.8 mg/dl (8.6-10.4); GFR NON-AFRICAN AMERICAN > 60
[2018-08-11 07:30] VITALS: TEMP 98.8; O2SAT 97
[2018-08-11 10:41] VITALS: BP 152/76; PULSE 72
[2018-08-11] MEDS: Metoprolol Succinate 50 mg XL Tab PO SCH (10:41)
[2018-08-11] MEDS: Pantoprazole 40 mg EC Tab PO SCH (10:41)
[2018-08-11] MEDS: Enoxaparin 40 mg Syringe SC SCH (10:41)
--- NOTE | 2018-08-11 19:41 | CP.PCM.DIS ---
Provider - Provider Date of Admission: 08/09/18 15:21 Attending physician: Dary Kwok MD Primary care physician: Dr. Mcduffie Consults: 08/09/18 12:57 Psychiatry Consult Routine Comment: Consulting Provider: Jarrell Martin Consulting Physician: Jarrell Martin Reason for Consult: anxiety Time Spent in preparation of Discharge (in minutes): 45 Diagnosis - Discharge Diagnosis (1) GERD (gastroesophageal reflux disease) Status: Chronic Priority: High (2) Hypokalemia Status: Resolved Priority: High (3) Nausea & vomiting Status: Resolved Priority: High (4) Anxiety Status: Chronic Priority: Medium Hospital Course - Lab Results Lab Results: Micro Results 08/09/18 10:15 Blood-Venous Blood Culture - Preliminary NO GROWTH AFTER 48 HOURS 08/09/18 10:30 Blood-Venous Blood Culture - Preliminary NO GROWTH AFTER 48 HOURS 08/09/18 19:31 Urine,Clean Catch Urine Culture - Final Escherichia Coli Most Recent Lab Values WBC 6.7 K/uL (4.8-10.8) 08/11/18 06:36 RBC 4.13 Mil/uL (3.80-5.20) 08/11/18 06:36 Hgb 11.6 g/dL (11.0-16.0) 08/11/18 06:36 Hct 35.3 % (34.0-47.0) 08/11/18 06:36 MCV 85.4 fL (81.0-99.0) 08/11/18 06:36 MCH 28.0 pg (27.0-31.0) 08/11/18 06:36 MCHC 32.8 g/dL (33.0-37.0) L 08/11/18 06:36 RDW 13.7 % (11.5-14.5) 08/11/18 06:36 Plt Count 225 K/uL (130-400) 08/11/18 06:36 MPV 9.6 fL (7.2-11.7) 08/11/18 06:36 Neut % (Auto) 62.5 % (50.0-75.0) 08/11/18 06:36 Lymph % (Auto) 27.6 % (20.0-40.0) 08/11/18 06:36 [place] % (Auto) 8.2 % (0.0-10.0) 08/11/18 06:36 Eos % (Auto) 1.0 % (0.0-4.0) 08/11/18 06:36 Baso % (Auto) 0.7 % (0.0-2.0) 08/11/18 06:36 Neut # (Auto) 4.2 K/uL (1.8-7.0) 08/11/18 06:36 Lymph # (Auto) 1.8 K/uL (1.0-4.3) 08/11/18 06:36 [place] # (Auto) 0.5 K/uL (0.0-0.8) 08/11/18 06:36 Eos # (Auto) 0.1 K/uL (0.0-0.7) 08/11/18 06:36 Baso # (Auto) 0.0 K/uL (0.0-0.2) 08/11/18 06:36 Sodium 135 mmol/L (132-148) 08/11/18 06:36 Potassium 4.0 mmol/L (3.6-5.2) 08/11/18 06:36 Chloride 102 mmol/L (98-107) 08/11/18 06:36 Carbon Dioxide 27 mmol/L (22-30) 08/11/18 06:36 Anion Gap 10 (10-20) 08/11/18 06:36 BUN 10 mg/dL (7-17) 08/11/18 06:36 Creatinine 0.9 mg/dL (0.7-1.2) 08/11/18 06:36 Est GFR ( Amer) > 60 08/11/18 06:36 Est GFR (Non-Af Amer) > 60 08/11/18 06:36 POC Glucose (mg/dL) 84 mg/dL (65-110) 08/09/18 12:01 Random Glucose 76 mg/dL (65-105) 08/11/18 06:36 Calcium 8.8 mg/dl (8.6-10.4) 08/11/18 06:36 Phosphorus 2.9 mg/dL (2.5-4.5) 08/11/18 06:36 Magnesium 1.9 mg/dL (1.6-2.3) 08/11/18 06:36 Total Bilirubin 2.1 mg/dL (0.2-1.3) H 08/11/18 06:36 AST 49 U/L (14-36) H 08/11/18 06:36 ALT 74 U/L (9-52) H 08/11/18 06:36 Alkaline Phosphatase 69 U/L (38-126) 08/11/18 06:36 Troponin I < 0.0120 ng/mL (0.00-0.120) 08/07/18 12:37 NT-Pro-B Natriuret Pep 321 pg/mL (0-900) 08/07/18 12:37 Total Protein 6.4 g/dL (6.3-8.3) 08/11/18 06:36 Albumin 3.8 g/dL (3.5-5.0) 08/11/18 06:36 Globulin 2.6 gm/dL (2.2-3.9) 08/11/18 06:36 Albumin/Globulin Ratio 1.5 (1.0-2.1) 08/11/18 06:36 Lipase 25 U/L (23-300) 08/07/18 12:37 Urine Color Yellow (YELLOW) 08/08/18 15:00 Urine Clarity Clear (Clear) 08/08/18 15:00 Urine pH 5.0 (5.0-8.0) 08/08/18 15:00 Ur Specific [place] 1.019 (1.003-1.030) 08/08/18 15:00 Urine Protein Negative mg/dL (NEGATIVE) 08/08/18 15:00 Urine Glucose (UA) Normal mg/dL (Normal) 08/08/18 15:00 Urine Ketones Trace mg/dL (NEGATIVE) 08/08/18 15:00 Urine Blood Negative (NEGATIVE) 08/08/18 15:00 Urine Nitrate Negative (NEGATIVE) 08/08/18 15:00 Urine Bilirubin Negative (NEGATIVE) 08/08/18 15:00 Urine Urobilinogen 2.0 mg/dL (0.2-1.0) H 08/08/18 15:00 Ur Leukocyte Esterase 3+ Elle/uL (Negative) H 08/08/18 15:00 Urine WBC (Auto) 70 /hpf (0-5) H 08/08/18 15:00 Urine RBC (Auto) 5 /hpf (0-3) H 08/08/18 15:00 Ur Squamous Epith Cells 1 /hpf (0-5) 08/08/18 15:00 Urine Bacteria Occ (<OCC) H 08/08/18 15:00 Hepatitis A IgM Ab Negative (NEGATIVE) 08/10/18 06:43 Hep Bs Antigen Negative (NEGATIVE) 08/10/18 06:43 Hep B Core IgM Ab Negative (NEGATIVE) 08/10/18 06:43 Hepatitis C Antibody Negative (NEGATIVE) 08/10/18 06:43 Influenza Typ A,B (EIA) Negative for flu a/b (NEGATIVE) 08/08/18 09:32 - Hospital Course Hospital Course: Pt is a 68yo F with PMH HTN who presents to ED with nausea and vomiting for 2 days. She reports worsening of the nausea and vomiting last night, when she began vomiting multiple times throughout the night. She describes the vomit as initially white, then green last night. She says she continued to vomit in the ED, but felt better after receiving zofran. She tried eating sea salt at home with no relief. She reports prior history of this in 2016 that lasted 4 months, claiming it was more severe at that time. Pt received EGD at that time which was normal. Pt denies abdominal pain, diarrhea, sick contacts, recent travel, or any outside food. She was able to eat lunch yesterday but has not eaten since. Pt reports last BM was yesterday, which was formed but she had to strain. She denies blood in vomit or stool. Pt denies dizziness, chest pain, shortness of breath, dizziness, dysuria, numbness or tingling. CT showed cholelithiasis without CT evidence of acute cholecystitis; no evidence of mechanical bowel obstruction, mass or intraperitoneal free air. Patient was found to be hypokalemic; potassium repleted. She was treated with Zofran and Reglan for nausea and vomiting. Patient describes symptoms of GERD and was started on PPI. Patient also reported stressors and anxiety in her life. She was seen by psychiatry and started on Lexapro. Ecoli was incidentally found in her urine. Patient was asymptomatic. She was treated with a short course of cipro. Patient also had mild tranaminitis. Hepatitis panel was negative. hepatotoxic m edications were avoided. Patient's BP was controlled with oral medications once tolerating PO intake. Upon discharge, patient's nausea and vomiting had resolved. She was tolerating a PO diet. Her potassium was within normal limits. her vitals were stable. She was tolerating her medications. Discharge Exam - Head Exam Head Exam: ATRAUMATIC, NORMAL INSPECTION - Additional Findings Additional findings: - Constitutional Appears: Non-toxic, No Acute Distress - Head Exam Head Exam: ATRAUMATIC, NORMAL INSPECTION - Eye Exam Eye Exam: EOMI, Normal appearance - ENT Exam ENT Exam: Mucous Membranes Moist - Neck Exam Neck Exam: Normal Inspection - Respiratory Exam Respiratory Exam: Clear to Ausculation Bilateral, NORMAL BREATHING PATTERN. absent: Accessory Muscle Use, Respiratory Distress - Cardiovascular Exam Cardiovascular Exam: REGULAR RHYTHM, +S1, +S2 - GI/Abdominal Exam GI & Abdominal Exam: Soft. absent: Distended, Tenderness, Rebound - Extremities Exam Extremities Exam: Normal Inspection - Neurological Exam Neurological Exam: Alert, Awake, CN II-XII Intact, Oriented x3 - Psychiatric Exam Psychiatric exam: Normal Affect, Normal Mood - Skin Skin Exam: Dry, Normal Color, Warm Discharge Plan - Discharge Medications Prescriptions: Ciprofloxacin [Cipro] 500 mg PO BID #4 tab Escitalopram [Lexapro] 5 mg PO DAILY #30 tab hydroCHLOROthiazide [Hydrodiuril] 25 mg PO DAILY #30 tab Metoprolol Succinate XL [Toprol XL] 50 mg PO DAILY #30 tab Pantoprazole [Protonix EC Tab] 40 mg PO DAILY #30 ect - Follow Up Plan Condition: IMPROVED Disposition: HOME/ ROUTINE Patient education suggested?: Yes Instructions: Hypokalemia (DC), Anxiety, Adult (DC), Nausea and Vomiting, Adult (DC) Additional Instructions: Please establish care at the [facility]. This can serve as your primary care. You have an appointment on September 07 at 9 AM. Please call [phone] if you need assistance. Take all medications as prescribed. You are being prescribe cipro, an antibiotic for UTI- please take twice daily for the nxt 2 days. You are being prescribed Pantoprazole 40 mg- take once daily for acid reflux. If your symptoms have not improved by the time you have your clinic appointment, ey can refer you for a computer systems support specialist evaluation and possible endoscopy. You are being prescribed Lexapro 5 mg- take once daily for anxiety and depression. You may follow-up with psychiatry as an outpatient for further management. If symptoms recur, return to the nearest emergency room. Referrals: [facility] [Outside] Jarrell Martin MD [Staff Provider] -
== END 2018-08-11 13:29 | disposition home or self-care (01) | DRG 425 ==
LOC: C.ER 10:37 → C.9E 13:55 → C.6T 16:33 → OBSVTOIN 08-09 15:21
PROVIDERS: ADMIT Internal Medicine; ATTEND Internal Medicine
DX: E87.6 Hypokalemia (principal); I10 Essential (primary) hypertension; F32.9 Major depressive disorder, single episode, unspecified; F41.1 Generalized anxiety disorder; K21.9 Gastro-esophageal reflux disease without esophagitis; K80.20 Calculus of gallbladder without cholecystitis without obstruction; Z83.3 Family history of diabetes mellitus